=== PATIENT | male | born 1965 | race Caucasian/White ===

== ENCOUNTER 2016-10-12 06:33 | Day surgery (SDC) | payer BC ==
[~2016-10-12] VITALS: Ht 172.7 cm; Wt 85.2 kg
--- NOTE | ~2016-10-12 | ECH ---
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 Risks, complications and alternative treatments were reviewed. Written consent was obtained. Conclusions Summary The estimated left ventricular ejection fraction is 60%. There is severe aortic stenosis. Aortic valve appears bicuspid with small mobile calcification. Mitral valve shows small scallop posterior leaflet prolapse with trivial regurgitation. Normal tricuspid valve structure with trace regurgitation. The pulmonic valve is not well visualized. No evidence of patent foramen ovale by saline bubble study . Procedure Type of Study TONI procedure:TONI SF. Procedure Date Date: 10/12/2016 Start: 08:51 AM Technical Quality: Adequate visualization Indications:Aortic stenosis. Appropriate Use Criteria: 9 Height: 68 inches Weight: 187 pounds BSA: 1.99 m Rhythm: Within normal limits HR: 72 bpm BP: 101/63 mmHg Procedure Informed Consent Procedure consent form obtained. Signature
== END 2016-10-12 10:47 | disposition home or self-care (01) ==
LOC: SSS 06:33
DX: I35.0 Nonrheumatic aortic (valve) stenosis (principal); Z79.82 Long term (current) use of aspirin; Z79.899 Other long term (current) drug therapy; Z87.891 Personal history of nicotine dependence